=== PATIENT | female | born 2000 | race Caucasian/White ===

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

== ENCOUNTER 2025-06-20 20:52 | Emergency (ER) | payer MEDICAID, OTHER ==
[~2025-06-20] VITALS: Ht 152.4 cm; Wt 50.0 kg
[2025-06-20 20:54] VITALS: TEMP 37.1; O2SAT 99
[2025-06-20 21:26] LABS: BASOPHILS % 0.5 % (0.0-2.0); EOSINOPHILS % 2.5 % (0.0-5.0); HEMATOCRIT. 38.1 % (36.0-48.0); HEMOGLOBIN. 12.7 g/dL (12.0-16.0); LYMPHOCYTES % 41.6 % (20.0-50.0); MEAN PLATELET VOLUME 7.7 fl (7.4-10.4); MONOCYTES % 7.3 % (2.0-8.0); NEUTROPHILS % 48.1 % (40.0-76.0); PLATELET 297 x1000/uL (130-400); RED BLOOD CELL COUNT 4.03 mill/uL (4.2-5.4); RED CELL DISTRIBUTION WIDTH 14.0 % (11.6-14.6)
[2025-06-20] MEDS: DIPHENHYDRAMINE 50MG/ML VIAL IV ONE (21:27)
[2025-06-20] MEDS: METHYLPREDNISOLONE SOD SUCC 125MG/2ML (ACT-O-VIAL) IV ONE (21:27)
[2025-06-20] MEDS: FAMOTIDINE 20MG/2ML VIAL IV ONE (21:27)
[2025-06-20 21:38] LABS: HCG SCREEN NEGATIVE
[2025-06-20 21:39] LABS: CREATININE 0.9 mg/dL (0.6-1.0); UREA NITROGEN BLOOD 13 mg/dL (9-23)
[2025-06-20] MEDS ORDERED: FAMO-135 MT (23:11)
[2025-06-20] MEDS ORDERED: EPIN0.3P3 IM (23:11)
[2025-06-20] MEDS ORDERED: DIPH50CA42 MT (23:11)
[2025-06-20] MEDS ORDERED: P50 MT (23:11)
[2025-06-20 23:48] VITALS: BP 107/47; PULSE 62; RESP 14; O2SAT 100
== END 2025-06-20 23:53 | disposition home or self-care (01) ==
LOC: ER 20:52
DX: T78.19XA Other adverse food reactions, not elsewhere classified, initial encounter (principal); F41.9 Anxiety disorder, unspecified; Z79.899 Other long term (current) drug therapy; X58.XXXA Exposure to other specified factors, initial encounter
CPT/HCPCS: 99285; 96374; 96375; 80048; 84703; 85025; 36415; J2919; J1200; J1308

== ENCOUNTER 2025-06-23 18:03 | Emergency (ER) | payer OTHER ==
[~2025-06-23] VITALS: Ht 165.1 cm; Wt 59.0 kg
[~2025-06-23 18:03] MED LIST: DIPH50CA42 MT; EPIN0.3P3 IM; FAMO-135 MT; P50 MT
[2025-06-23 18:06] VITALS: O2SAT 100
[2025-06-23] MEDS: SODIUM CHLORIDE 0.9% 1,000 ML IV ONE (18:45)
[2025-06-23 19:01] LABS: BASOPHILS % 0.4 % (0.0-2.0); EOSINOPHILS % 0.0 % (0.0-5.0); HEMATOCRIT. 38.0 % (36.0-48.0); HEMOGLOBIN. 12.5 g/dL (12.0-16.0); LYMPHOCYTES % 15.5 % (20.0-50.0); MEAN PLATELET VOLUME 7.9 fl (7.4-10.4); MONOCYTES % 6.8 % (2.0-8.0); NEUTROPHILS % 77.3 % (40.0-76.0); PLATELET 334 x1000/uL (130-400); RED BLOOD CELL COUNT 4.04 mill/uL (4.2-5.4); RED CELL DISTRIBUTION WIDTH 14.6 % (11.6-14.6)
[2025-06-23 19:22] LABS: CREATININE 0.8 mg/dL (0.6-1.0); UREA NITROGEN BLOOD 13 mg/dL (9-23)
[2025-06-23 19:23] LABS: TROPONIN I HIGH SENSITIVITY < 4 ng/L (3.0-34)
[2025-06-23 19:30] VITALS: TEMP 36.7
[2025-06-23 19:37] LABS: HCG SCREEN NEGATIVE
[2025-06-23 21:51] VITALS: BP 101/62; PULSE 71; RESP 13; O2SAT 100
[2025-06-23 22:00] LABS: TROPONIN I HIGH SENSITIVITY < 4 ng/L (3.0-34)
== END 2025-06-23 21:53 | disposition home or self-care (01) ==
LOC: ER 18:03
DX: R55 Syncope and collapse (principal); F31.9 Bipolar disorder, unspecified; Z91.010 Allergy to peanuts
CPT/HCPCS: 99284; 96360; 80048; 84703; 85025; 84484; 36415; 93005; J7030